=== PATIENT | female | born 1940 | race African-American/Black ===

== ENCOUNTER 2019-10-18 06:32 | Outpatient (CLI) | payer MEDICARE, OTHER ==
[~2019-10-18] VITALS: Ht 165.1 cm; Wt 71.7 kg
[2019-10-18] MEDS ORDERED: AMLO10TA8 PO (07:34)
[2019-10-18] MEDS ORDERED: DOXY100C2 PO (07:34)
[2019-10-18] MEDS ORDERED: CHOL500021 PO (07:34)
[2019-10-18] MEDS ORDERED: SENN8.6T11 PO (07:34)
[2019-10-18] MEDS ORDERED: METO50TA4 PO (07:34)
[2019-10-18] MEDS ORDERED: ACET500T33 PO (07:34)
[2019-10-18 07:55] LABS: BASO # 0.1 x10^3/uL (0.0-0.2); BASO % 1 % (0-3); EOS # 0.1 x10^3/uL (0.0-0.7); EOS % 2 % (0-3); HEMATOCRIT 26.2 % (36.0-47.0); HEMOGLOBIN 8.9 g/dL (12.0-15.5); LYMPH # 1.9 x10^3/uL (1.0-4.8); LYMPH % 26 % (24-48); MEAN CORPUSCULAR HEMOGLOBIN 32 pg (25-35); MEAN CORPUSCULAR HGB CONC 34 g/dL (31-37); MEAN CORPUSCULAR VOLUME 94 fL (79-100); MONO # 0.5 x10^3/uL (0.0-1.1); MONO % 7 % (0-9); NEUT # 4.9 x10^3/uL (1.8-7.7); NEUT % 65 % (31-73); PLATELET COUNT 257 x10^3/uL (140-400); RED BLOOD COUNT 2.79 x10^6/uL (3.50-5.40); RED CELL DISTRIBUTION WIDTH 13.2 % (11.5-14.5); WHITE BLOOD COUNT 7.6 x10^3/uL (4.0-11.0)
[2019-10-18 08:04] LABS: PROTHROMBIN TIME PATIENT 12.9 SEC (11.7-14.0)
[2019-10-18] MEDS ORDERED: LIDOCAINE 1%/EPI 1:100,000 20 ML VIAL. ONE (08:05)
[2019-10-18 08:19] VITALS: BP 177/68
[2019-10-18] MEDS ORDERED: ceFAZolin SODIUM IV Push 1 GM VIAL. IVP ONE ×2 (08:20→08:45)
[2019-10-18] MEDS ORDERED: MIDAZOLAM HCL/PF 2 MG/2 ML VIAL. ONE (08:20)
[2019-10-18] MEDS ORDERED: fentaNYL PF VIAL 100 MCG/2 ML VIAL ONE (08:20)
[2019-10-18] MEDS ORDERED: LIDOCAINE 1%/EPI 1:100,000 20 ML VIAL. INJ ONE (08:45)
[2019-10-18] MEDS ORDERED: fentaNYL PF VIAL 100 MCG/2 ML VIAL IV ONE (08:45)
[2019-10-18] MEDS ORDERED: MIDAZOLAM HCL/PF 2 MG/2 ML VIAL. IV ONE (08:45)
[2019-10-18 08:52] VITALS: BP 142/52
[2019-10-18 08:55] VITALS: BP 148/56
--- NOTE | 2019-10-18 08:56 | RAD ---
Procedure: Tunneled hemodialysis catheter placement 10/18/2019 6:52 AM Clinical Indication: Initiating Dialysis Sterility: All elements of maximal sterile barrier technique including the use of a cap, mask, sterile gown, sterile gloves, large sterile sheet, appropriate hand hygiene, and 2% chlorhexidine for cutaneous antisepsis (or acceptable alternative antiseptic per current guidelines) were followed for this procedure. Consent: The procedure was explained in its entirety to the patient or the patients designated sales support representative by a member of the treatment team, including a discussion of the risks, benefits and commonly accepted alternatives to the procedure, as well as the expected consequences of no therapy whatsoever. Discussion of the risks included, but was not limited to, those that are most frequent and those that are rare but possibly severe or life-threatening, as well as the possibility of unforeseen complications. Technique and Findings: Following informed consent, a timeout procedure was performed. The patient was prepped and draped in the usual sterile fashion. Ultrasound interrogation of the right neck revealed patency and compressibility of the right internal jugular vein. A 21-gauge micropuncture was then used to gain access to this vein under ultrasound guidance. A hard copy ultrasound image was recorded. The needle was exchanged over a wire for a 4 [place] sheath which was used to guide an guidewire into the IVC. The skin over the right anterior chest wall was copiously anesthetized with 1% Lidocaine and a small dermatotomy was made. A 23 cm tipped cuff palindrome tunneled hemodialysis catheter was then tunneled subcutaneously towards the neck dermatotomy and deployed through a large caliber peel-away sheath under fluoroscopic guidance such that the distal tip resided in the mid right atrium. Manual flow rates were assessed and found to be within normal limits. The catheter was then flushed, packed with Heparin, capped, and sutured to the skin. The neck dermatotomy was closed with Dermabond. No immediate complications were identified. Sedation: Conscious sedation was administered for 20 minutes. The patient was monitored by a qualified independent observer throughout the time of sedation. Please refer to the medical record for exact doses of medications utilized to achieve moderate sedation. Fluoroscopy time: 0.2 min Dose area product: 1 gycm2 Impression: Tunneled hemodialysis catheter placement as described
[2019-10-18 09:10] VITALS: BP 144/55
[2019-10-18 09:25] VITALS: BP 180/71
[2019-10-18 09:40] VITALS: BP 181/59
--- NOTE | 2019-10-18 10:00 | NUR ---
Discharge Note: [place] [facility] Discharge instructions and discharge home medications reviewed with Patient and a copy given. All questions have been answered and understanding verbalized. Dressing remains dry and intact, pt tolerated PO without difficulty. Copy of MD note and order to use catheter sent with pt The following instructions and handouts were given: dialysis catheter, sedation Discontinued lines and drains: Peripheral IV intact. Patient discharged to [facility] with Primary [facility] via Wheelchair SERGEY TOBAR Addendum: 10/18/19 at 1138 by LON SANTILLAN RN Amended: Links added.
== END 2019-10-18 10:00 | disposition home or self-care (01) ==
LOC: INTRAD 06:32
PROVIDERS: ATTEND Internal Medicine Nephrology
DX: Z49.01 Encounter for fitting and adjustment of extracorporeal dialysis catheter (principal); I12.9 Hypertensive chronic kidney disease with stage 1 through stage 4 chronic kidney disease, or unspecified chronic kidney disease; N18.9 Chronic kidney disease, unspecified; F03.90 Unspecified dementia, unspecified severity, without behavioral disturbance, psychotic disturbance, mood disturbance, and anxiety; E78.00 Pure hypercholesterolemia, unspecified; E87.6 Hypokalemia; I71.4 Abdominal aortic aneurysm, without rupture; M19.90 Unspecified osteoarthritis, unspecified site; F17.210 Nicotine dependence, cigarettes, uncomplicated; Z87.01 Personal history of pneumonia (recurrent); Z79.899 Other long term (current) drug therapy; Z98.890 Other specified postprocedural states
CPT/HCPCS: 36415; 36558; 76937; 77001; 85025; 85610; C1750; C1769; C1892; J0690; J2250; J3010; J3490; 99152; 99153

== ENCOUNTER 2019-10-26 11:04 | Outpatient (CLI) | payer MEDICARE, OTHER ==
[~2019-10-26] VITALS: Ht 152.4 cm; Wt 70.8 kg
[~2019-10-26 11:04] MED LIST: ACET500T33 PO; AMLO10TA8 PO; CHOL500021 PO; DOXY100C2 PO; METO50TA4 PO; SENN8.6T11 PO
[2019-10-26 12:17] VITALS: BP 148/57
[2019-10-26] MEDS ORDERED: LIDOCAINE 1%/EPI 1:100,000 20 ML VIAL. ONE (12:44)
[2019-10-26] MEDS ORDERED: ceFAZolin SODIUM IV Push 1 GM VIAL. IVP ONE ×2 (12:56→13:30)
[2019-10-26] MEDS ORDERED: MIDAZOLAM HCL/PF 2 MG/2 ML VIAL. ONE (12:56)
[2019-10-26] MEDS ORDERED: fentaNYL PF VIAL 100 MCG/2 ML VIAL ONE (12:57)
[2019-10-26] MEDS ORDERED: fentaNYL PF VIAL 100 MCG/2 ML VIAL IV ONE (13:30)
[2019-10-26] MEDS ORDERED: MIDAZOLAM HCL/PF 2 MG/2 ML VIAL. IV ONE (13:30)
[2019-10-26] MEDS ORDERED: LIDOCAINE 1%/EPI 1:100,000 20 ML VIAL. INJ ONE (13:30)
[2019-10-26 13:36] VITALS: BP 141/53
[2019-10-26 13:45] VITALS: BP 149/82
[2019-10-26 14:00] VITALS: BP 160/56
[2019-10-26 14:16] VITALS: BP 148/76
[2019-10-26 14:30] VITALS: BP 174/70
--- NOTE | 2019-10-26 15:35 | NUR ---
Discharge Note: [facility] [facility] Discharge instructions and discharge home medications reviewed with Other facility and a copy given. All questions have been answered and understanding verbalized. Dressing to R chest catheter site remains clean and dry. Pt able to tolerate PO, transfer without difficulty. The following instructions and handouts were given: dialysis catheter/central line, sedation Patient discharged to [facility] with [facility] via Wheelchair SERGEY RN Addendum: 10/26/19 at 1537 by LON SANTILLAN RN Amended: Links added.
--- NOTE | 2019-10-27 08:53 | RAD ---
Procedure: Replacement of right internal jugular tunneled hemodialysis catheter 10/27/2019 6:44 AM Clinical Indication: Slow flows Sterility: All elements of maximal sterile barrier technique including the use of a cap, mask, sterile gown, sterile gloves, large sterile sheet, appropriate hand hygiene, and 2% chlorhexidine for cutaneous antisepsis (or acceptable alternative antiseptic per current guidelines) were followed for this procedure. Consent: The procedure was explained in its entirety to the patient or the patients designated assisted sales representative by a member of the treatment team, including a discussion of the risks, benefits and commonly accepted alternatives to the procedure, as well as the expected consequences of no therapy whatsoever. Discussion of the risks included, but was not limited to, those that are most frequent and those that are rare but possibly severe or life-threatening, as well as the possibility of unforeseen complications. Technique and Findings: Following informed consent, a timeout procedure was performed. The patient was prepped and draped in the usual sterile fashion. Or skeletal evaluation demonstrates the right internal jugular tunnel dialysis catheter to be somewhat short, with tip at the cavoatrial junction. The guidewire was advanced into the inferior vena cava over which, the pre-existing catheter was removed and replaced the new 23 cm tip to cuff palindrome dialysis catheter positioned such that the tip was in the mid right atrium. The new catheter was found to flush and aspirate normally. The catheter was then flushed, packed with Heparin, capped, and sutured to the skin. d. No immediate complications were identified. Sedation: Conscious sedation was administered for 20 minutes. The patient was monitored by a qualified independent observer throughout the time of sedation. Please refer to the medical record for exact doses of medications utilized to achieve moderate sedation. Fluoroscopy time:0.7 min Dose area product: 1 Gycm2 Impression: Replacement of right internal jugular tunneled dialysis catheter over guidewire
== END 2019-10-26 14:40 | disposition home or self-care (01) ==
LOC: INTRAD 11:04
PROVIDERS: ATTEND Surgery
DX: T82.49XA Other complication of vascular dialysis catheter, initial encounter (principal); Y83.8 Other surgical procedures as the cause of abnormal reaction of the patient, or of later complication, without mention of misadventure at the time of the procedure; Y92.89 Other specified places as the place of occurrence of the external cause
CPT/HCPCS: 36581; 77001; 99152; C1750; C1769; J0690; J2250; J3010; J3490

== ENCOUNTER → 2020-01-18 | Outpatient (CLI) | payer MEDICARE, OTHER ==
[~2020-01-18] VITALS: Ht 152.4 cm; Wt 63.5 kg
[2020-01-18] VITALS (7 sets, daily range): BP systolic 101–128; BP diastolic 38–62
[~2020-01-18] MED LIST changes: +AMIN30LI2 PO; +CONTRAST GIVEN. MC PRN; +FOLI0.8T21 PO; +IOHEXOL 240 MG/ML 50ML VIAL. IJ ONE; +IOHEXOL 240 MG/ML 50ML VIAL. ONE; +LIDOCAINE 1%/EPI 1:100,000 20 ML VIAL. ONE; +LIDOCAINE 1%/EPI 1:100,000 20 ML VIAL. SQ ONE; +MIDAZOLAM HCL/PF 2 MG/2 ML VIAL. IV ONE; +MIDAZOLAM HCL/PF 2 MG/2 ML VIAL. ONE; +ceFAZolin SODIUM IV Push 1 GM VIAL. IVP ONE; +fentaNYL PF VIAL 100 MCG/2 ML VIAL IV ONE; +fentaNYL PF VIAL 100 MCG/2 ML VIAL ONE
--- NOTE | 2020-01-18 12:00 | NUR ---
Patient came in outpatient from [facility] for dialysis catheter check and exchange. New tunneled HD catheter placed, patient tolerated well with no issues. Patient ate breakfast with no issues. No IV this visit, unable to obtain IV access, dialysis access used per Dr Espinal. Vitals stable, report called to [facility] spoke with EKATERINA Adames. Patient transported back to [facility] via their transportation, patient left with [facility].
--- NOTE | 2020-01-19 09:28 | RAD ---
01/19/2020 7:23 AM Procedure: 1. Venogram through pre-existing right internal jugular dialysis catheter 2. Placement of pre-existing dialysis catheter over a guidewire Clinical Indication: NON FUNCTIONING CVC Discussion: The procedure was explained in its entirety to the patient or the patients designated risk control representative by a member of the treatment team, including a discussion of the risks, benefits and commonly accepted alternatives to the procedure, as well as the expected consequences of no therapy whatsoever. Discussion of the risks included, but was not limited to, those that are most frequent and those that are rare but possibly severe or life-threatening, as well as the possibility of unforeseen complications. All elements of maximal sterile barrier technique including the use of a cap, mask, sterile gown, sterile gloves, large sterile sheet, appropriate hand hygiene, and 2% chlorhexidine for cutaneous antisepsis (or acceptable alternative antiseptic per current guidelines) were followed for this procedure. Fluoroscopic evaluation demonstrates the pre-existing catheter to be in expected position. Contrast was administered through this catheter demonstrating no fibrin sheath or other gross abnormality. Guidewire was advanced through this catheter into the IVC. The pre-existing catheter was removed over wire and replaced the new 23 cm palindrome dialysis catheter was found to flush and aspirate normally. Catheter was flushed and secured. No immediate complications were identified. Total fluoroscopy time: 0.7 min Dose area product sex: Gycm2 The procedures performed under conscious sedation including continuous cardiopulmonary monitoring via dedicated sedation nurse. [id number] sedation time: 35 Impression: 1. Unremarkable venogram through the pre-existing dialysis catheter without evidence of fibrin sheath or other abnormality 2. Successful replacement of right internal jugular tunnel hemodialysis catheter
== END | disposition home or self-care (01) ==
LOC: INTRAD 08:32
PROVIDERS: ATTEND Nurse Practitioner Adult Health
DX: T82.49XA Other complication of vascular dialysis catheter, initial encounter (principal); I12.9 Hypertensive chronic kidney disease with stage 1 through stage 4 chronic kidney disease, or unspecified chronic kidney disease; N18.9 Chronic kidney disease, unspecified; E78.00 Pure hypercholesterolemia, unspecified; Z98.890 Other specified postprocedural states; Z79.899 Other long term (current) drug therapy; Z94.0 Kidney transplant status; Y83.8 Other surgical procedures as the cause of abnormal reaction of the patient, or of later complication, without mention of misadventure at the time of the procedure; Y92.89 Other specified places as the place of occurrence of the external cause
CPT/HCPCS: 36581; 75827; 77001; 99152; 99153; C1750; C1769; J0690; J2250; J3010; J3490; Q9966